=== PATIENT | female | born 1980 | race Caucasian/White ===

== ENCOUNTER 2024-07-18 09:50 | Emergency (ER) | payer MEDICAID ==
[~2024-07-18] VITALS: Ht 165.1 cm; Wt 103.5 kg
[~2024-07-18 09:50] MED LIST: HYDROXYZINE; MULT-620 PO; OMEP20CA15 PO
[2024-07-18 13:05] LABS: URINE HCG NEGATIVE (NEG)
[2024-07-18] MEDS: cyclobenzaprine 10mg tablet PO ONE (13:23)
[2024-07-18] MEDS: HYDROcodone/acetaminophen 5mg/325mg tablet PO ONE (13:23)
[2024-07-18] MEDS: ketorolac trometh 30MG/ML vial 30 MG/ML VIAL IM ONE (13:24)
[2024-07-18] MEDS: dexamethasone sod phosphate 10mg/ml inj IM STA (13:24)
[2024-07-18] MEDS: ondansetron 4mg rapidly disintigrating tab PO ONE (13:48)
[2024-07-18] MEDS ORDERED: HYDR-3972 PO (14:35)
[2024-07-18] MEDS ORDERED: CYCL-1 PO (14:35)
[2024-07-18] MEDS ORDERED: LIDO700A32 TOP (14:35)
[2024-07-18 14:45] VITALS: BP 135/88; PULSE 89; RESP 18; TEMP 98.5; O2SAT 99
== END 2024-07-18 14:45 | disposition home or self-care (01) ==
LOC: ER 09:50
DX: S16.1XXA Strain of muscle, fascia and tendon at neck level, initial encounter (principal); S29.012A Strain of muscle and tendon of back wall of thorax, initial encounter; S40.012A Contusion of left shoulder, initial encounter; F07.81 Postconcussional syndrome; V89.2XXA Person injured in unspecified motor-vehicle accident, traffic, initial encounter; Y93.89 Activity, other specified; Y92.89 Other specified places as the place of occurrence of the external cause; Y99.8 Other external cause status
CPT/HCPCS: 71250; 72125; 81025; 96372; 99285; J1100; J1885

== ENCOUNTER 2025-01-11 12:37 | Emergency (ER) | payer MEDICAID ==
[~2025-01-11] VITALS: Ht 165.1 cm; Wt 99.1 kg
[~2025-01-11 12:37] MED LIST changes: +CYCL-1 PO; +LIDO-52 TOP
[2025-01-11 12:39] VITALS: TEMP 97.8
--- NOTE | 2025-01-11 12:44 | Physician Documentation ---
History of Present Illness Stated Complaint: RIB PAIN Primary Medical Doctor: [facility] HPI Patient 44-year-old female that presents to the emergency department for evaluation of left-sided chest wall pain after stretching today. Patient denies any pain that feels intrathoracic or associated with her heart. Patient denies any radiating pain shortness of breath lightheadedness dizzy or any other symptoms at this time. Reports that she recently underwent a pre radiation evaluation and appointment to undergo therapy for a thyroid cancer. Patient denies any other significant past medical history and no other symptoms at this time. Medication Reconciliation Allergies: Coded Allergies: minocycline (Verified Allergy, Unknown, 11/13/08) Scheduled Cyclobenzaprine* (Cyclobenzaprine*), 1 TAB PO HS Lidocaine (Lidoderm), 1 PATCH TOP DAILY Multivitamins (Multivitamins), 1 EACH PO DAILY, (Reported) Omeprazole (Omeprazole), 2 CAP PO TID, (Reported) Scheduled PRN [Hydroxyzine], 10 MG HS PRN for anxiety, (Reported) Review of Systems ROS As stated above in the HPI, otherwise all systems are reviewed and negative. Physical Exam Physical Exam VITALS: Reviewed and as above. GENERAL: Alert, no apparent distress. HEENT: Normocephalic, atraumatic, PERRL, EOMI, dry mucosa, no erythema RESPIRATORY: Lungs clear, normal breath sounds, no respiratory distress. CHEST: No accessory muscle use, no retractions CV: Regular rate, rhythm, no edema, no murmur, No: JVD GI: Soft, non-tender, bowels sounds present, no rebound, guarding, or rigidity BACK: No CVA tenderness, or swelling MUSCULOSKELETAL No deformities, no edema, principal pain at the 5th intercostal space slightly lateral to the midclavicular line, patient with palpation during examination. SKIN: Warm and dry, no rash NEURO: Oriented x4, No motor or sensory deficit PSYCH: Normal mood and affect, no agitation Medical Decision Making Findings This patient is a 44-year-old female that presents to the emergency department with atypical chest pain most likely secondary to costochondritis secondary to stretching yesterday. Low suspicion for ACS acute PE PERC is negative, low concern for pericarditis myocarditis thoracic aortic dissection pneumothorax pneumonia or other acute infectious processes. Presentation not consistent with other acute emergent cause of chest pain at this time no indication for cardiac enzyme testing chest x-ray complete consistent with above-listed diagnosis 12 lead negative also reassuring for no acute cardiac concern at this time. Patient given Toradol and Solu-Medrol injections while here in the emergency department with significant improvement. Patient will be prescribed Flexeril x5 days. We will follow up with her primary care provider. Patient will return to the emergency department if she has any worsening or recurrent symptoms or any additional concerning symptoms that we discussed here today i.e. chest pain shortness of breath radiating chest pain or pressure significant increase in pain, fever chills nausea vomiting diarrhea or any other concerning symptoms. Differential Dx:Considerations: Include: AAA, -Complete, - Incomplete, -Inevitable, -Missed, -Threatened, Abruptio placentae, Angina/TX, Aortic dissection, Appendicitis, Bowel obstruction, Cholangitis, Cholelithasis, Constipation, Diverticular disease, Esophageal rupture, Esophagitis, Gastritis/PUD, Gastroenteritis, GI hemorrhage, Hernia, Hepatitis, Inflammatory BD, Ischemic bowel, Ovarian cyst/torsion, Pancreatitis, PID, Porphyria, Trauma, intraabdominal, Urinary obstruction, Urinary tract infection, Urolithiasis, Other Departure Disposition: 01 HOME / SELF CARE / HOMELESS Impression: Primary Impression: Rib pain Additional Impression: Costochondritis, acute Condition: Stable Discharge Instructions: Costochondritis, [id number] Additional Instructions: This patient is a 44-year-old female that presents to the emergency department w ith atypical chest pain most likely secondary to costochondritis secondary to stretching yesterday. Low suspicion for ACS acute PE PERC is negative, low concern for pericarditis myocarditis thoracic aortic dissection pneumothorax pneumonia or other acute infectious processes. Presentation not consistent with other acute emergent cause of chest pain at this time no indication for cardiac enzyme testing chest x-ray complete consistent with above-listed diagnosis 12 lead negative also reassuring for no acute cardiac concern at this time. Patient given Toradol and Solu-Medrol injections while here in the emergency department with significant improvement. Patient will be prescribed Flexeril x5 days. We will follow up with her primary care provider. Patient will return to the emergency department if she has any worsening or recurrent symptoms or any additional concerning symptoms that we discussed here today i.e. chest pain shortness of breath radiating chest pain or pressure significant increase in pain, fever chills nausea vomiting diarrhea or any other concerning symptoms. Tylenol ibuprofen as needed for discomfort starting tomorrow. Please do not take anymore ibuprofen today as you were given an NSAID here in the emergency department. Follow up with her primary care provider. Please return to the emergency department if you have any worsening or recurrent symptoms or any additional concerning symptoms that we discussed here today. The patient was educated on not taking her prescribed Flexeril the same time as her previously prescribed trazodone or hydroxyzine. Referrals: NO PRIMARY CARE PROVIDER (PCP) Prescriptions Cyclobenzaprine* (Cyclobenzaprine*) 10 Mg Tablet 1 TAB PO BID for 5 Days, #10 TAB Prov: DOLORES SHEPPARD 01/11/25 Education Educated: Patient Educated regarding: diagnosis, treatment, need for follow up Signature Scribe Signature: A Attestation: Scribed for Dolores Sheppard by BARBARA Rico . 01/11/25 13:40 DOLORES SHEPPARD Jan 11, 2025 12:44
--- NOTE | 2025-01-11 13:02 | ELECTROCARDIOGRAPH REPORT ---
[facility] Test Date: 2025-01-11 Test Time: 12:52:50 Pat Name: SHERRY OBRIEN Department: EMERGENCY ROOM Room: Gender: F [employer] Set Up Worker: MIGNON : 1980 Requested By: MARISELA SHEPPARD Order Number: [id number] Reading MD: Dr. Juan Mcwilliams Measurements Intervals Jennings Rate: 83 P: 70 ID: [id number] QRS: 80 QRSD: 91 T: 17 QT: 408 QTc: 480 Interpretive Statements Sinus rhythm Baseline wander in lead(s) V2 Electronically Signed On 01-11-2025 21:39:[address] Juan Mcwilliams Please click the below link to view image of tracing.
[2025-01-11] MEDS: ketorolac trometh 15mg/ml vial 15 MG/ML ML IM ONE (13:03)
[2025-01-11] MEDS: ketorolac trometh 30MG/ML vial 30 MG/ML VIAL IM ONE (13:06)
--- NOTE | 2025-01-11 13:16 | RADIOLOGY REPORT ---
DI CHEST,TWO VIEWS, HISTORY: pain in left chest wall COMPARISON: CT CT CHEST on DOS: 07/18/[address] CHEST on DOS: 07/18/24 TECHNICAL DATA: 2 view of the chest was obtained. FINDINGS: Lines and tubes: None Cardiomediastinal silhouette: normal Pulmonary vasculature: normal Lung expansion: normal Lung airspace: normal Lung interstitium: normal Pleura: normal Pneumothorax: no Bones: Unremarkable Other: no IMPRESSION: No acute intrathoracic abnormality.
[2025-01-11] MEDS ORDERED: CYCL-1 PO (13:38)
[2025-01-11 13:52] VITALS: BP 130/97; PULSE 80; RESP 15; O2SAT 97
== END 2025-01-11 13:54 | disposition home or self-care (01) ==
LOC: ER 12:37
DX: R07.81 Pleurodynia (principal); M94.0 Chondrocostal junction syndrome [Tietze]
CPT/HCPCS: 71046; 93005; 96372; 99284; J1885; J2919